=== PATIENT | female | born 2000 | race Caucasian/White ===

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

== ENCOUNTER 2018-08-07 22:22 | Emergency (ER) | payer OTHER ==
[2018-08-07] MEDS: ACETAMINOPHEN 500 MG TAB PO (23:38)
== END 2018-08-07 23:54 | disposition home or self-care (01) ==
LOC: FTE 22:22
DX: S09.90XA Unspecified injury of head, initial encounter (principal); W22.8XXA Striking against or struck by other objects, initial encounter; Y92.9 Unspecified place or not applicable
CPT/HCPCS: 99283; Z7502